=== PATIENT | male | born 1965 | race African-American/Black ===

== ENCOUNTER 2017-09-19 11:30 | Emergency (ER) | payer OTHER ==
[2017-09-19] MEDS ORDERED: SODIUM CHLORIDE 1,000 ML IV STA (11:44)
--- NOTE | 2017-09-19 11:44 | PDOC ---
History of Present Illness - General Chief Complaint: Pain Stated Complaint: ABD PAIN Time Seen by Provider: 09/19/17 11:37 History Source: Patient Exam Limitations: No Limitations - History of Present Illness Travel History: No Initial Comments: 09/19/17 11:40 52 y/o male with abdominal pain since last night. Denies fever, chills. N/V/d/ C. Believes he may have food poisoning but no one else got sick. Denies traveling. No back pain or SOB. Denies dysuria. Has not taken anything for the pain. No fall or trauma. Patient states to have had a colonoscopy last year. Timing/Duration: reports: constant Quality: reports: moderate Abdominal Pain Onset Location: reports: LLQ. denies: flank Pain Radiation: reports: no radiation Past History - Past Medical History Allergies/Adverse Reactions: Allergies Allergy/AdvReac Type Severity Reaction Status Date / Time No Known Allergies Allergy Verified 09/19/17 11:32 Home Medications: Ambulatory Orders Hydrochlorothiazide [Hctz -] 25 mg PO DAILY 09/19/17 Levofloxacin [Levaquin] 500 mg PO DAILY #7 tablet 09/19/17 Losartan 50Mg/Hctz 12.5MG [Hyzaar -] 1 tab PO DAILY 09/19/17 metroNIDAZOLE [Flagyl -] 500 mg PO TID #21 tablet 09/19/17 Cardiac Disorders: Yes ([facility] BECAUSE OF [facility]) COPD: No HTN: Yes - Immunization History Immunization Up to Date: Yes - Suicide/Smoking/Psychosocial Hx Smoking History: Current some day smoker Have you smoked in the past 12 months: Yes Number of Cigarettes Smoked Daily: 1 Information on smoking cessation initiated: Yes 'Breaking Loose' booklet given: 09/19/17 Hx Alcohol Use: (occasional) Drug/Substance Use Hx: No Substance Use Type: Alcohol Review of Systems - Review of Systems Able to Perform ROS?: Yes Is the patient limited Latvian proficient: No Constitutional: No: Chills, Fever Respiratory: No: Cough, Shortness of Breath Cardiac (ROS): No: Chest Pain ABD/GI: No: Diarrhea, Nausea, Vomiting Musculoskeletal: No: Back Pain All Other Systems: Reviewed and Negative *Physical Exam - Vital Signs Last Vital Signs Temp Pulse Resp BP Pulse Ox 98.6 F 93 H 18 176/116 96 09/19/17 11:30 09/19/17 11:30 09/19/17 11:30 09/19/17 11:30 09/19/17 11:30 - Physical Exam General Appearance: Yes: Nourished, Appropriately Dressed. No: Apparent Distress, Disheveled, Mild Distress HEENT: positive: EOMI, SOPHIA, Normal ENT Inspection, Pharynx Normal Neck: positive: Trachea midline, Normal Thyroid, Supple. negative: Tender, Rigid, Carotid bruit Respiratory/Chest: positive: Lungs Clear, Normal Breath Sounds. negative: Chest Tender, Respiratory Distress Cardiovascular: positive: Regular Rhythm, Regular Rate, S1, S2. negative: Edema , JVD, Murmur Vascular Pulses: Femoral (R): 4+, Femoral (L): 4+, Carotid (R): 4+, Carotid (L) : 4+, Dorsalis-Pedis (R): 4+, Doralis-Pedis (L): 4+ Gastrointestinal/Abdominal: positive: Normal Bowel Sounds, Tender (mild LLQ tenderness, no RUQ or LUQ tenderness, +BS, no RLQ tenderness), Flat, Soft. negative: Organomegaly, Pulsatile Mass Lymphatic: negative: Adenopathy, Tenderness, Other Musculoskeletal: positive: Normal Inspection. negative: CVA Tenderness Extremity: positive: Normal Capillary Refill, Normal Inspection, Normal Range of Motion Integumentary: positive: Normal Color, Dry, Warm Neurologic: positive: condenser cleaner II-XII NML intact, Fully Oriented, Alert, Normal Mood/ Affect, Normal Response, Motor Strength 5/5 ED Treatment Course - LABORATORY CBC & Chemistry Diagram: 09/19/17 12:00 09/19/17 12:00 Progress Note - Progress Note Progress Note: Pt with mild LLQ tenderness, no N/V/D. Will obtain labs and CT abdomen to r/o diverticulitis. CT show small descending segment of diverticulitis. Pt without fever or wbc, will treat with antibiotics if worsen will return to ER Pt is in agreement with plan, risks and benefits explained to pt *DC/Admit/Observation/Transfer Diagnosis at time of Disposition: Diverticulitis - Discharge Dispostion Disposition: HOME Condition at time of disposition: Stable Admit: No - Referrals Referrals: Violet Everett [Primary Care Provider] - - Patient Instructions Printed Discharge Instructions: DI for Diverticulitis Additional Instructions: Fluids, rest, Motrin Flagyl 500mg 3x/day for 7 days Levaquin 500mg daily for 7 days Follow up with your Gift Consultant If worsen return to ER - Post Discharge Activity
[2017-09-19 11:56] VITALS: TEMP 98.6; BMI 38.0
[2017-09-19 12:01] VITALS: BP 141/81; PULSE 87
[2017-09-19 12:36] LABS: BASO % 1.3 % (0-2.0); EOS % 0.5 % (0-4.5); HEMATOCRIT 44.1 % (35.4-49); HEMOGLOBIN 14.8 GM/dl (11.7-16.9); LYMPH % 13.4 % (8-40); MCH 28.3 pg (25.7-33.7); MCHC 33.6 g/dl (32.0-35.9); MEAN CELL VOLUME 84.1 fl (80-96); MEAN PLT VOLUME 8.8 fl (7.5-11.1); MONO % 3.6 % (3.8-10.2); NEUT % 81.2 % (42.8-82.8); PLATELET COUNT 413 K/MM3 (134-434); RBC 5.24 M/mm3 (4.00-5.60); RDW 14.5 % (11.9-15.9); WHITE BLOOD COUNT 10.5 K/mm3 (4.0-10.8)
[2017-09-19 12:45] LABS: ALBUMIN 4.3 g/dl (3.5-5.0); ALK PHOS 62 U/L (32-92); AMYLASE 46 U/L (25-125); ANION GAP 8 (8-16); BILIRUBIN,TOTAL 0.7 mg/dl (0.2-1.0); BLOOD UREA NITROGEN 18 mg/dl (7-18); CALCIUM 9.3 mg/dl (8.4-10.2); CHLORIDE 100 mmol/L (98-107); CO2 26 mmol/L (22-28); CREATININE 1.2 mg/dl (0.6-1.3); GLUCOSE,RANDOM 108 mg/dl (74-106); POTASSIUM 4.3 mmol/L (3.5-5.1); SGOT/AST 17 U/L (10-42); SGPT/ALT 20 U/L (10-40); SODIUM 134 mmol/L (136-145); TOT PROT 8.2 g/dl (6.4-8.3)
[2017-09-19 13:48] LABS: PH,URINE 5.5 (4.5-8); URINE APPEARANCE Clear; URINE BILIRUBIN Negative (NEGATIVE); URINE GLUCOSE (UA) Negative (NEGATIVE); URINE KETONE Trace (NEGATIVE); URINE LEUK ESTERASE Negative (NEGATIVE); URINE NITRITE Negative (NEGATIVE); URINE PROTEIN Negative (NEGATIVE); URINE UROBILINOGEN 0.2 (0.2-1.0)
[2017-09-19] MEDS ORDERED: morphine SULFATE 4 MG/ML VIAL IVPUSH ONE (13:48)
[2017-09-19] MEDS ORDERED: ONDANSETRON 4 MG/2 ML VIAL IVPUSH ONE (13:48)
[2017-09-19] MEDS ORDERED: morphine SULFATE 4 MG/ML VIAL ONE (13:49)
[2017-09-19] MEDS ORDERED: ONDANSETRON 4 MG/2 ML VIAL ONE (13:49)
[2017-09-19 13:52] LABS: URINE BLOOD 1+ (NEGATIVE); URINE COLOR YELLOW
[2017-09-19 14:34] LABS: EPI CELLS RARE /HPF; URINE BACTERIA RARE /hpf (NEGATIVE); URINE RBC 0-3 /hpf (0-3); URINE WBC 0-3 (0-2)
== END 2017-09-19 16:26 | disposition home or self-care (01) ==
LOC: FER 11:30
PROC: 3E03329 Introduction of Other Anti-infective into Peripheral Vein, Percutaneous Approach (ICD-10-PCS; principal; 2017-09-19)
PROC: 3E033NZ Introduction of Analgesics, Hypnotics, Sedatives into Peripheral Vein, Percutaneous Approach (ICD-10-PCS; 2017-09-19)
PROC: 3E033GC Introduction of Other Therapeutic Substance into Peripheral Vein, Percutaneous Approach (ICD-10-PCS; 2017-09-19)
PROC: 3E0337Z Introduction of Electrolytic and Water Balance Substance into Peripheral Vein, Percutaneous Approach (ICD-10-PCS; 2017-09-19)
DX: I25.2 Old myocardial infarction (principal); F17.210 Nicotine dependence, cigarettes, uncomplicated
CPT/HCPCS: 36415; 74177-TC; 80053; 81003; 81015; 82150; 85025; 96361; 96365; 96368; 96375; 99283-25; J7030